=== PATIENT | female | born 1975 | race Two or more races ===

== ENCOUNTER 2019-03-18 00:49 | Emergency (ER) | payer MEDICAID ==
[~2019-03-18] VITALS: Ht 165.1 cm; Wt 81.6 kg
[~2019-03-18 00:49] MED LIST: DAFLON PO
[2019-03-18 02:24] LABS: Basophils # (auto) 0 uL; Eosinophils # (auto) 0 uL; Lymphocytes # (auto) 0.8 uL; Monocytes # (auto) 0.4 uL; Neutrophils % (auto) 88.5 % (37.0-80.0)
[2019-03-18 02:26] LABS: Basophils % (auto) 0.2 % (0.0-2.0); Eosinophils % (auto) 0.2 % (0.0-7.0); Hematocrit 33.8 % (36.0-46.0); Hemoglobin 10.8 g/dL (12.2-16.2); Lymphocytes % (auto) 7.5 % (10.0-50.0); Mean Corpuscular Hemoglobin 24.6 pg (28.0-32.0); Mean Corpuscular Volume 77.1 fL (80.0-100.0); Monocytes % (auto) 3.6 % (0.0-12.0); Neutrophils # (auto) 9.5 uL; Platelet Count (auto) 390 10^3/uL (140-450); Red Blood Cells 4.38 10^6/uL (4.0-5.20); White Blood Cell 10.8 10^3/uL (4.4-10.8)
[2019-03-18 02:47] LABS: Albumin 3.8 g/dL (3.4-5.0); Anion Gap 6 (5-15); BUN/Creatinine Ratio 22.5; Blood Urea Nitrogen 16 mg/dL (7-18); Calcium 8.6 mg/dL (8.5-10.1); Carbon Dioxide 26 mmol/L (21-32); Chloride 108 mmol/L (98-107); GFR African American 115 mL/min; GFR Non-African American 95 mL/min; Glucose 107 mg/dL (74-106); Potassium 3.8 mmol/L (3.5-5.1); Sodium 140 mmol/L (136-145)
[2019-03-18 02:58] LABS: Alanine Aminotransferase 21 U/L (13-56); Alkaline Phosphatase 57 U/L (45-117); Aspartate Aminotransferase 16 U/L (15-37); Bilirubin, Total 1.2 mg/dL (0.2-1.0); Total Protein 7.8 g/dL (6.4-8.2)
[2019-03-18] MEDS ORDERED: HYDROcodone-ACET 5/325MG TAB PO ONE (03:15)
[2019-03-18 03:56] LABS: Urine Bacteria NONE SEEN /hpf (None Seen); Urine Blood 3+ /uL (Negative); Urine Mucus FEW (None Seen); Urine Specific Gravity 1.027 (1.001-1.035); Urine WBC 51 /hpf (0 - 5)
[2019-03-18 04:01] LABS: Alcohol, Urine < 3.0 mg/dL (0-5); Amphetamine Screen, Urine NEGATIVE (NEGATIVE); Barbiturate Scree,Urine NEGATIVE (NEGATIVE); Benzodiazephine Screen, Urine NEGATIVE (NEGATIVE); Cannabinoid Screen, Urine NEGATIVE (NEGATIVE); Cocaine Screen, Urine NEGATIVE (NEGATIVE); Opiate Scree,Urine NEGATIVE (NEGATIVE); Phencyclidine Screen, Urine NEGATIVE (NEGATIVE)
[2019-03-18 05:24] VITALS: BP 105/57
== END 2019-03-18 05:24 | disposition home or self-care (01) ==
LOC: ER 00:51
DX: R51 Headache (principal); N39.0 Urinary tract infection, site not specified; R11.2 Nausea with vomiting, unspecified
CPT/HCPCS: 36415; 70450; 80053; 80307; 80320; 81001; 82962; 84484; 84702; 85025; 93005

== ENCOUNTER 2021-10-25 14:34 | Emergency (ER) | payer MEDICAID ==
[~2021-10-25] VITALS: Ht 165.1 cm; Wt 132.0 kg
[2021-10-25] MEDS ORDERED: IBUPROFEN 600 MG TAB PO ONE (20:15)
[2021-10-26 00:45] VITALS: BP 118/61
[2021-10-26] MEDS ORDERED: KETOROLAC TROMETH 60MG/2ML VIAL IM ONE (07:00)
[2021-10-26] MEDS ORDERED: IBUP800T27 PO (07:03)
[2021-10-26] MEDS ORDERED: CYCL-837 PO ×2 (07:03→08:52)
== END 2021-10-26 07:22 | disposition home or self-care (01) ==
LOC: ER 14:34
DX: S46.912A Strain of unspecified muscle, fascia and tendon at shoulder and upper arm level, left arm, initial encounter (principal); M54.42 Lumbago with sciatica, left side; X50.9XXA Other and unspecified overexertion or strenuous movements or postures, initial encounter; Y93.89 Activity, other specified; Y92.89 Other specified places as the place of occurrence of the external cause; Y99.8 Other external cause status
CPT/HCPCS: 96372; 99283; J1885